=== PATIENT | male | born 1950 | race Caucasian/White ===

== ENCOUNTER → 2021-02-01 | Outpatient (CLI) | payer MEDICARE | LOC: US 09:44 | PROVIDERS: ATTEND Internal Medicine | DX: R94.5 Abnormal results of liver function studies (principal) | CPT/HCPCS: 76705 ==

== ENCOUNTER → 2021-06-05 | Outpatient (CLI) | payer MEDICARE ==
[~2021-06-05] MED LIST: IOPAMIDOL 370 MG/ML 200 ML INFUS..BTL INJ ONE; SODIUM CHLORIDE 0.9% 50ML 50 ML ONE
[2021-06-05 15:11] LABS: CREATININE, SERUM 0.79 mg/dL (0.72-1.25)
== END ==
LOC: CT 14:32
PROVIDERS: ATTEND Nurse Practitioner Adult Health
DX: R14.0 Abdominal distension (gaseous) (principal); R18.8 Other ascites; N20.0 Calculus of kidney; K57.30 Diverticulosis of large intestine without perforation or abscess without bleeding; K74.60 Unspecified cirrhosis of liver
CPT/HCPCS: 36415; 74177; 82565; 84520; Q9967

== ENCOUNTER → 2021-06-13 | Outpatient (CLI) | payer MEDICARE ==
[~2021-06-13] MED LIST changes: +ALBUMIN 25% 12.5GM 50ML 150 ML IV ONE; +ALBUMIN 25% 12.5GM 50ML 50 ML IV ONE; -IOPAMIDOL 370 MG/ML 200 ML INFUS..BTL INJ ONE; -SODIUM CHLORIDE 0.9% 50ML 50 ML ONE
[2021-06-13 12:28] LABS: HEMOGLOBIN 14.5 g/dL (14.0-18.0)
[2021-06-13 12:41] LABS: INR 1.15; PROTHROMBIN TIME 15.2 seconds (11.9-14.5)
[2021-06-13 12:42] LABS: PARTIAL THROMBOPLASTIN TIME 35.5 seconds (23.8-35.5)
== END ==
LOC: US 11:52
PROVIDERS: ATTEND Nurse Practitioner Adult Health
DX: R18.8 Other ascites (principal)
CPT/HCPCS: 36415; 49083; 85014; 85049; 85610; 85730

== ENCOUNTER → 2023-01-17 | Outpatient (CLI) | payer MEDICARE | LOC: MRI 08:18 | PROVIDERS: ATTEND Nurse Practitioner Adult Health | DX: M54.16 Radiculopathy, lumbar region (principal) | CPT/HCPCS: 72148 ==

== ENCOUNTER → 2023-02-25 | Outpatient (CLI) | payer MEDICARE | LOC: CT 16:18 | PROVIDERS: ATTEND Neurological Surgery | DX: M51.16 Intervertebral disc disorders with radiculopathy, lumbar region (principal); M51.36 Other intervertebral disc degeneration, lumbar region; M48.061 Spinal stenosis, lumbar region without neurogenic claudication | CPT/HCPCS: 72131 ==

== ENCOUNTER 2024-01-27 11:21 | Inpatient (IN) | payer MEDICARE ==
[~2024-01-27] VITALS: Ht 180.3 cm; Wt 99.8 kg
[2024-01-27] VITALS (7 sets, daily range): BP systolic 119; BP diastolic 76; PULSE 88–93; RESP 17–20; TEMP 97.7–97.8; O2SAT 97–100
[~2024-01-27 11:21] MED LIST changes: -ALBUMIN 25% 12.5GM 50ML 150 ML IV ONE; -ALBUMIN 25% 12.5GM 50ML 50 ML IV ONE; +ELIQUIS5 MG PO; +LACTULOSE10 GM/15 M PO; +LASIX40 MG PO; +METOPROLOL SUCC25 MG PO; +MYSOLINE50 MG PO; +OMEPRAZOLE40 MG PO; +RYBELSUS7 MG PO; +SPIRONOLACTONE25 MG PO
[2024-01-27 12:03] LABS: BASOPHILS # (AUTO) 0.1 (0.0-0.1); BASOPHILS % 0.4 % (0.0-1.0); EOSINOPHILS # (AUTO) 0.1 (0.0-0.4); EOSINOPHILS % 0.6 % (0.0-6.0); HEMOGLOBIN 13.6 g/dL (14.0-18.0); LYMPHOCYTES # (AUTO) 1.2 (1.0-3.2); LYMPHOCYTES % 9.1 % (18.0-39.1); MEAN CORPUSCULAR HEMOGLOBIN 30.2 pg (28-32); MEAN CORPUSCULAR HGB CONC 34.9 g/dL (31-35); MEAN CORPUSCULAR VOLUME 86.5 fL (81-99); MONOCYTES # (AUTO) 0.9 (0.2-0.8); MONOCYTES % 6.5 % (4.4-11.3); NEUTROPHILS # (AUTO) 10.9 (2.1-6.9); NEUTROPHILS % 82.2 % (38.7-80.0); PLATELET COUNT 209 x10e3/uL (140-360); RED BLOOD COUNT 4.51 x10e6/uL (4.3-5.7); RED CELL DISTRIBUTION WIDTH 17.5 % (11.7-14.4); WHITE BLOOD COUNT 13.24 x10e3/uL (4.8-10.8)
[2024-01-27 12:24] LABS: INR 2.03; PROTHROMBIN TIME 24.1 seconds (11.9-14.5)
[2024-01-27 12:25] LABS: PARTIAL THROMBOPLASTIN TIME 43.2 seconds (23.8-35.5)
[2024-01-27 12:32] LABS: ALBUMIN 2.3 g/dL (3.5-5.0); ALBUMIN/GLOBULIN RATIO 0.5 (0.8-2.0); ANION GAP 15.7 mmol/L (8-16); CALCIUM 12.6 mg/dL (8.4-10.2); CREATININE, SERUM 2.12 mg/dL (0.72-1.25); POTASSIUM 4.7 mmol/L (3.5-5.1); TOTAL PROTEIN 7.3 g/dL (6.5-8.1)
[2024-01-27] MEDS ORDERED: SODIUM CHLORIDE 0.9% 1000ML 1,000 ML IV SCH ×2 (12:45→14:45)
[2024-01-27] MEDS ORDERED: SODIUM CHLORIDE 0.9% 100 ML ONE (12:54)
[2024-01-27] MEDS ORDERED: IOPAMIDOL 370 MG/ML 100 ML INFUS..BTL INJ ONE (12:54)
[2024-01-27] MEDS ORDERED: LACTULOSE SYRUP 20 GM/30 ML UDC PO PRN (14:45)
[2024-01-27] MEDS ORDERED: Morphine 4mg INJECTION 4 MG/ML INJ ONE (19:51)
[2024-01-27] MEDS: Morphine 4mg INJECTION 4 MG/ML INJ IV ONE (19:52)
[2024-01-27] MEDS ORDERED: ELIQUIS5 M1 PO (21:10)
[2024-01-27] MEDS ORDERED: GLIMEPIRIDE2 MG PO (21:10)
[2024-01-28] VITALS (9 sets, daily range): BP systolic 108–154; BP diastolic 69–92; PULSE 93–109; RESP 18–22; TEMP 97.5–98.3; O2SAT 97–100
[2024-01-28 07:15] LABS: CLARITY,URINE CLOUDY (CLEAR); COLOR,URINE YELLOW (YELLOW); GLUCOSE, URINE NEGATIVE (NEGATIVE); KETONES,URINE NEGATIVE (NEGATIVE); LEUKOCYTE ESTERASE ,URINE SMALL (NEGATIVE); NITRITE,URINE NEGATIVE (NEGATIVE); PH,URINE 5.5 (5 - 7); PROTEIN,URINE DIPSTICK 2+ (NEGATIVE); URINE UROBILINOGEN 0.2 mg/dL (0.2 - 1)
[2024-01-28 07:16] LABS: BILIRUBIN,URINE SMALL (NEGATIVE)
[2024-01-28 07:16] LABS: BASOPHILS % 0.2 % (0.0-1.0); EOSINOPHILS # (AUTO) 0.1 (0.0-0.4); EOSINOPHILS % 0.4 % (0.0-6.0); HEMATOCRIT 35.6 % (38.2-49.6); HEMOGLOBIN 12.7 g/dL (14.0-18.0); LYMPHOCYTES # (AUTO) 1.2 (1.0-3.2); LYMPHOCYTES % 7.1 % (18.0-39.1); MEAN CORPUSCULAR HEMOGLOBIN 30.2 pg (28-32); MEAN CORPUSCULAR HGB CONC 35.7 g/dL (31-35); MEAN CORPUSCULAR VOLUME 84.8 fL (81-99); MONOCYTES # (AUTO) 0.8 (0.2-0.8); MONOCYTES % 4.8 % (4.4-11.3); NEUTROPHILS # (AUTO) 14.7 (2.1-6.9); NEUTROPHILS % 86.2 % (38.7-80.0); PLATELET COUNT 197 x10e3/uL (140-360); RED CELL DISTRIBUTION WIDTH 17.4 % (11.7-14.4); WHITE BLOOD COUNT 16.99 x10e3/uL (4.8-10.8)
[2024-01-28 07:42] LABS: CALCIUM 9.5 mg/dL (8.4-10.2); CREATININE, SERUM 2.02 mg/dL (0.72-1.25)
[2024-01-28 07:44] LABS: BACTERIA,URINE MANY /HPF; EPITHELIAL CELLS,URINE RARE /LPF; RBC,URINE >50 /HPF (0-5); TRANSITIONAL EPI CELLS,URINE RARE; WBC,URINE (MAN) 21-50 /HPF (0-5)
[2024-01-28 08:43] LABS: ANION GAP 15.1 mmol/L (8-16); POTASSIUM 5.1 mmol/L (3.5-5.1)
[2024-01-28] MEDS ORDERED: SPIRONOLACTONE 25 MG TAB PO SCH (09:00)
[2024-01-28] MEDS: SODIUM CHLORIDE 0.9% 1000ML 1,000 ML IV SCH (09:02)
[2024-01-28] MEDS: PANTOPRAZOLE SOD 40 MG TABEC PO SCH (09:03)
[2024-01-28] MEDS: METOPROLOL SUCCINATE 25 MG TAB XL PO SCH (09:03)
[2024-01-28] MEDS: ACETAMINOPHEN 325 MG TAB PO PRN (10:18)
[2024-01-28] MEDS: ONDANSETRON HCL INJ 2MG/ML 2ML 2 MG/ML VIAL IV PRN (13:20)
[2024-01-28] MEDS: Morphine 2mg Syringe 2 MG/ML SYR IV PRN (13:21)
[2024-01-28] MEDS: NALOXONE HCL INJ 0.4 MG/ML AMP IV ONE (15:03)
[2024-01-28] MEDS: DEXTROSE 50% SYRINGE 50 ML IV ONE ×2 (15:07→15:19)
[2024-01-28] MEDS: DEXTROSE 50% SYRINGE 50 ML IV STA (15:09)
[2024-01-28] MEDS: SODIUM CHLORIDE 0.9% 1000ML 1,000 ML IV ONE (15:19)
[2024-01-28 17:48] LABS: BASOPHILS % 0.2 % (0.0-1.0); EOSINOPHILS % 0.2 % (0.0-6.0); HEMATOCRIT 33.9 % (38.2-49.6); LYMPHOCYTES # (AUTO) 0.2 (1.0-3.2); LYMPHOCYTES % 1.2 % (18.0-39.1); MEAN CORPUSCULAR HEMOGLOBIN 29.5 pg (28-32); MEAN CORPUSCULAR HGB CONC 32.4 g/dL (31-35); MEAN CORPUSCULAR VOLUME 90.9 fL (81-99); MONOCYTES # (AUTO) 0.2 (0.2-0.8); MONOCYTES % 1.1 % (4.4-11.3); NEUTROPHILS # (AUTO) 17.1 (2.1-6.9); PLATELET COUNT 156 x10e3/uL (140-360); RED BLOOD COUNT 3.73 x10e6/uL (4.3-5.7); RED CELL DISTRIBUTION WIDTH 17.9 % (11.7-14.4); WHITE BLOOD COUNT 18.43 x10e3/uL (4.8-10.8)
[2024-01-28 20:36] LABS: HYPOCHROMASIA SLIGHT; LYMPHOCYTES % (MANUAL) 3 % (19-48); MONOCYTES % (MANUAL) 5 % (3.4-9.0); NEUTROPHILS % (MANUAL) 92 % (40-74)
[2024-01-28 20:37] LABS: ELLIPTOCYTE, RBC SLIGHT; PLATELET ESTIMATE ADEQUATE; PLATELET MORPHOLOGY COMMENT NORMAL; RBC MORPHOLOGY COMMENT NORMAL
[2024-01-28] MEDS: TAMSULOSIN HCL 0.4 MG CAP PO SCH (20:51)
[2024-01-29] VITALS (23 sets, daily range): BP systolic 82–140; BP diastolic 51–69; PULSE 82–118; RESP 11–22; TEMP 96.8–98; O2SAT 96–100
[2024-01-29] MEDS: LACTULOSE SYRUP 20 GM/30 ML UDC RC PRN (01:52)
[2024-01-29] MEDS: PHYTONADIONE 10 MG/ML AMP IV ONE (01:52)
[2024-01-29] MEDS: LACTULOSE SYRUP 20 GM/30 ML UDC ONE ×3 (01:54→10:18)
[2024-01-29] MEDS ORDERED: LACTULOSE SYRUP 20 GM/30 ML UDC RC ONE (02:00)
[2024-01-29 06:27] LABS: BASOPHILS # (AUTO) 0.1 (0.0-0.1); BASOPHILS % 0.2 % (0.0-1.0); EOSINOPHILS # (AUTO) 0.1 (0.0-0.4); EOSINOPHILS % 0.4 % (0.0-6.0); HEMATOCRIT 31.6 % (38.2-49.6); HEMOGLOBIN 11.2 g/dL (14.0-18.0); LYMPHOCYTES # (AUTO) 0.9 (1.0-3.2); LYMPHOCYTES % 2.6 % (18.0-39.1); MEAN CORPUSCULAR HEMOGLOBIN 30.5 pg (28-32); MEAN CORPUSCULAR HGB CONC 35.4 g/dL (31-35); MEAN CORPUSCULAR VOLUME 86.1 fL (81-99); MONOCYTES # (AUTO) 1.3 (0.2-0.8); MONOCYTES % 3.8 % (4.4-11.3); NEUTROPHILS # (AUTO) 29.3 (2.1-6.9); NEUTROPHILS % 86.4 % (38.7-80.0); PLATELET COUNT 153 x10e3/uL (140-360); RED BLOOD COUNT 3.67 x10e6/uL (4.3-5.7); RED CELL DISTRIBUTION WIDTH 18.3 % (11.7-14.4); WHITE BLOOD COUNT 33.84 x10e3/uL (4.8-10.8)
[2024-01-29 06:57] LABS: ALBUMIN 1.7 g/dL (3.5-5.0); ALBUMIN/GLOBULIN RATIO 0.4 (0.8-2.0); BILIRUBIN,TOTAL 1.2 mg/dL (0.2-1.2); CALCIUM 8.5 mg/dL (8.4-10.2); CREATININE, SERUM 2.72 mg/dL (0.72-1.25); TOTAL PROTEIN 5.8 g/dL (6.5-8.1)
[2024-01-29] MEDS: RIFAXIMIN 550 MG TABLET PO SCH (09:00)
[2024-01-29 09:07] LABS: LYMPHOCYTES % (MANUAL) 2 % (19-48); MONOCYTES % (MANUAL) 6 % (3.4-9.0); NEUTROPHILS % (MANUAL) 92 % (40-74)
[2024-01-29 09:08] LABS: PLATELET ESTIMATE ADEQUATE; PLATELET MORPHOLOGY COMMENT NORMAL; RBC MORPHOLOGY COMMENT NORMAL
[2024-01-29] MEDS ORDERED: LIDOCAINE HCL 1% LOCAL INJ 20 ML VIAL ONE (09:24)
[2024-01-29] MEDS ORDERED: ALBUMIN 25% 12.5GM 50ML 100 ML IV ONE (10:02)
[2024-01-29] MEDS: RIFAXIMIN 550 MG TABLET PO STA (10:18)
[2024-01-29 11:07] LABS: POTASSIUM 5.7 mmol/L (3.0-5.1)
[2024-01-29 11:08] LABS: ANION GAP 19.7 mmol/L (8-16)
[2024-01-29] MEDS ORDERED: ALBUMIN 5% 0.05 GM/ML BTL IV ONE ×2 (12:30)
[2024-01-29] MEDS: DEXTROSE 50% SYRINGE 50 ML IV ONE (12:39)
[2024-01-29] MEDS: INSULIN REGULAR, HUMAN 100 UNIT/1 ML IV ONE (12:41)
[2024-01-29] MEDS: ALBUMIN 5% 250ML 250 ML IV ONE ×2 (12:59→13:00)
[2024-01-29] MEDS: SOD POLYSTYRENE SULFONATE SUSP 15 GM/60 ML BTL PR ONE (13:00)
[2024-01-29 17:59] LABS: BODY FLUID APPEARANCE SL.CLOUDY; BODY FLUID COLOR YELLOW; BODY FLUID TYPE PERITONEAL
[2024-01-29 18:00] LABS: LYMPHOCYTES,BODY FLUID 11 %; MONO/MACROPHG,BODY FLUID 7 %; NEUTROPHILS,BODY FLUID 82 %; RBC,BODY FLUID 2000 cells/uL; TOTAL CELLS COUNTED (DIFF) 100; WBC,BODY FLUID 369 cells/uL
[2024-01-29 21:38] LABS: HEPATITIS B SURFACE AG (P) NON-REACTIVE; HEPATITIS C ANTIBODY NON-REACTIVE
[2024-01-29] MEDS: RIFAXIMIN 550 MG TABLET PO ONE (22:49)
[2024-01-30] VITALS (27 sets, daily range): BP systolic 112–148; BP diastolic 54–77; PULSE 86–119; RESP 10–22; TEMP 97.5–98.8; O2SAT 98–100
[2024-01-30 01:30] LABS: SODIUM,URINE < 20 mmol/L
[2024-01-30 06:05] LABS: BASOPHILS % 0.1 % (0.0-1.0); EOSINOPHILS # (AUTO) 0.1 (0.0-0.4); EOSINOPHILS % 0.3 % (0.0-6.0); HEMATOCRIT 29.8 % (38.2-49.6); LYMPHOCYTES # (AUTO) 0.8 (1.0-3.2); LYMPHOCYTES % 3.6 % (18.0-39.1); MEAN CORPUSCULAR HEMOGLOBIN 29.9 pg (28-32); MEAN CORPUSCULAR HGB CONC 33.6 g/dL (31-35); MEAN CORPUSCULAR VOLUME 89.2 fL (81-99); MONOCYTES # (AUTO) 1.3 (0.2-0.8); MONOCYTES % 5.6 % (4.4-11.3); NEUTROPHILS # (AUTO) 19.9 (2.1-6.9); NEUTROPHILS % 88.3 % (38.7-80.0); PLATELET COUNT 127 x10e3/uL (140-360); RED BLOOD COUNT 3.34 x10e6/uL (4.3-5.7); RED CELL DISTRIBUTION WIDTH 18.4 % (11.7-14.4); WHITE BLOOD COUNT 22.53 x10e3/uL (4.8-10.8)
[2024-01-30 06:45] LABS: ALBUMIN 2.2 g/dL (3.5-5.0); ALBUMIN/GLOBULIN RATIO 0.6 (0.8-2.0); CREATININE, SERUM 1.96 mg/dL (0.72-1.25); TOTAL PROTEIN 5.7 g/dL (6.5-8.1)
[2024-01-30 08:00] LABS: ANION GAP 8.3 mmol/L (8-16); CALCIUM 8.6 mg/dL (8.0-10.3); POTASSIUM 4.3 mmol/L (3.0-5.1)
[2024-01-30 08:32] LABS: LYMPHOCYTES % (MANUAL) 5 % (19-48); MONOCYTES % (MANUAL) 4 % (3.4-9.0); NEUTROPHILS % (MANUAL) 91 % (40-74); PLATELET ESTIMATE SLIGHTLY DECREASED; PLATELET MORPHOLOGY COMMENT NORMAL
[2024-01-30 08:33] LABS: RBC MORPHOLOGY COMMENT NORMAL
[2024-01-30] MEDS: ALBUMIN 5% 0.05 GM/ML BTL IV ONE (10:46)
[2024-01-30] MEDS: MUPIROCIN 2% OINT 22 GM TUBE TOP SCH (12:55)
[2024-01-30] MEDS: MEROPENEM 1 GM in SODIUM CHLORIDE 0.9% 100 ML IV SCH (17:34)
[2024-01-31] VITALS (24 sets, daily range): BP systolic 104–167; BP diastolic 64–80; PULSE 101–122; RESP 9–18; TEMP 98.1–98.5; O2SAT 95–100
[2024-01-31 06:22] LABS: BASOPHILS % 0.1 % (0.0-1.0); EOSINOPHILS # (AUTO) 0.1 (0.0-0.4); EOSINOPHILS % 0.3 % (0.0-6.0); HEMATOCRIT 29.3 % (38.2-49.6); LYMPHOCYTES # (AUTO) 0.9 (1.0-3.2); LYMPHOCYTES % 4.6 % (18.0-39.1); MEAN CORPUSCULAR HGB CONC 34.1 g/dL (31-35); MONOCYTES # (AUTO) 1.1 (0.2-0.8); MONOCYTES % 5.7 % (4.4-11.3); NEUTROPHILS # (AUTO) 16.7 (2.1-6.9); NEUTROPHILS % 88.4 % (38.7-80.0); PLATELET COUNT 120 x10e3/uL (140-360); RED BLOOD COUNT 3.33 x10e6/uL (4.3-5.7); RED CELL DISTRIBUTION WIDTH 18.6 % (11.7-14.4); WHITE BLOOD COUNT 18.83 x10e3/uL (4.8-10.8)
[2024-01-31 06:44] LABS: ALBUMIN 2.4 g/dL (3.5-5.0); ALBUMIN/GLOBULIN RATIO 0.7 (0.8-2.0); BILIRUBIN,TOTAL 1.1 mg/dL (0.2-1.2); CREATININE, SERUM 1.52 mg/dL (0.72-1.25); TOTAL PROTEIN 5.8 g/dL (6.5-8.1)
[2024-01-31] MEDS: LACTULOSE SYRUP 20 GM/30 ML UDC PO SCH (09:03)
[2024-01-31 16:04] LABS: ANION GAP 18.1 mmol/L (8-16); CALCIUM 9.1 mg/dL (8.4-10.2)
[2024-01-31] MEDS ORDERED: DEXTROSE 50% SYRINGE 50 ML IV PRN (17:30)
[2024-01-31] MEDS: METOPROLOL TARTRATE 25 MG TAB PO ONE (17:37)
[2024-01-31] MEDS: INSULIN REGULAR, HUMAN 100 UNIT/1 ML SQ SCH (18:04)
[2024-02-01] VITALS (21 sets, daily range): BP systolic 104–145; BP diastolic 61–90; PULSE 92–106; RESP 10–19; TEMP 98–98.1; O2SAT 97–100
[2024-02-01 06:46] LABS: BASOPHILS % 0.2 % (0.0-1.0); EOSINOPHILS # (AUTO) 0.1 (0.0-0.4); EOSINOPHILS % 1.1 % (0.0-6.0); HEMATOCRIT 30.6 % (38.2-49.6); HEMOGLOBIN 10.4 g/dL (14.0-18.0); LYMPHOCYTES # (AUTO) 0.7 (1.0-3.2); LYMPHOCYTES % 6.1 % (18.0-39.1); MEAN CORPUSCULAR HEMOGLOBIN 30.1 pg (28-32); MEAN CORPUSCULAR VOLUME 88.4 fL (81-99); MONOCYTES % 8.5 % (4.4-11.3); NEUTROPHILS # (AUTO) 10.1 (2.1-6.9); NEUTROPHILS % 83.1 % (38.7-80.0); PLATELET COUNT 102 x10e3/uL (140-360); RED BLOOD COUNT 3.46 x10e6/uL (4.3-5.7); RED CELL DISTRIBUTION WIDTH 18.7 % (11.7-14.4); WHITE BLOOD COUNT 12.18 x10e3/uL (4.8-10.8)
[2024-02-01 07:16] LABS: ALBUMIN 2.2 g/dL (3.5-5.0); ALBUMIN/GLOBULIN RATIO 0.6 (0.8-2.0); ANION GAP 12.7 mmol/L (8-16); BILIRUBIN,TOTAL 0.9 mg/dL (0.2-1.2); CREATININE, SERUM 1.26 mg/dL (0.72-1.25); MAGNESIUM 2.1 MG/DL (1.3-2.1); PHOSPHORUS 2.3 MG/DL (2.3-4.7); POTASSIUM 3.7 mmol/L (3.5-5.1); TOTAL PROTEIN 5.8 g/dL (6.5-8.1)
[2024-02-01] MEDS: METOPROLOL TARTRATE 25 MG TAB PO SCH (08:53)
[2024-02-02] VITALS (18 sets, daily range): BP systolic 104–128; BP diastolic 66–85; PULSE 102–120; RESP 12–19; TEMP 97.6–97.9; O2SAT 92–100
[2024-02-02 07:09] LABS: BASOPHILS % 0.2 % (0.0-1.0); EOSINOPHILS # (AUTO) 0.1 (0.0-0.4); EOSINOPHILS % 0.9 % (0.0-6.0); HEMATOCRIT 34.7 % (38.2-49.6); HEMOGLOBIN 11.8 g/dL (14.0-18.0); LYMPHOCYTES # (AUTO) 0.8 (1.0-3.2); LYMPHOCYTES % 6.7 % (18.0-39.1); MEAN CORPUSCULAR HEMOGLOBIN 30.1 pg (28-32); MEAN CORPUSCULAR VOLUME 88.5 fL (81-99); MONOCYTES # (AUTO) 1.2 (0.2-0.8); MONOCYTES % 10.1 % (4.4-11.3); NEUTROPHILS # (AUTO) 9.7 (2.1-6.9); NEUTROPHILS % 80.3 % (38.7-80.0); PLATELET COUNT 116 x10e3/uL (140-360); RED BLOOD COUNT 3.92 x10e6/uL (4.3-5.7); RED CELL DISTRIBUTION WIDTH 18.6 % (11.7-14.4); WHITE BLOOD COUNT 12.07 x10e3/uL (4.8-10.8)
[2024-02-02 07:21] LABS: ALBUMIN 2.3 g/dL (3.5-5.0); ALBUMIN/GLOBULIN RATIO 0.6 (0.8-2.0); BILIRUBIN,TOTAL 1.3 mg/dL (0.2-1.2); CALCIUM 8.4 mg/dL (8.4-10.2); CREATININE, SERUM 1.34 mg/dL (0.72-1.25); TOTAL PROTEIN 6.3 g/dL (6.5-8.1)
[2024-02-02] MEDS: LACTULOSE SYRUP 20 GM/30 ML UDC PO SCH (09:08)
[2024-02-02 10:58] LABS: AMYLASE,BODY FLUID 23
[2024-02-02 10:59] LABS: GLUCOSE,BODY FLUID 122 mg/dL
[2024-02-03] VITALS (15 sets, daily range): BP systolic 112–144; BP diastolic 57–101; PULSE 99–113; RESP 10–22; TEMP 98.1–98.6; O2SAT 90–99
[2024-02-03 06:44] LABS: BASOPHILS # (AUTO) 0.1 (0.0-0.1); BASOPHILS % 0.5 % (0.0-1.0); EOSINOPHILS # (AUTO) 0.1 (0.0-0.4); EOSINOPHILS % 1.1 % (0.0-6.0); HEMATOCRIT 35.2 % (38.2-49.6); HEMOGLOBIN 11.9 g/dL (14.0-18.0); LYMPHOCYTES # (AUTO) 1.1 (1.0-3.2); LYMPHOCYTES % 9.4 % (18.0-39.1); MEAN CORPUSCULAR HEMOGLOBIN 30.2 pg (28-32); MEAN CORPUSCULAR HGB CONC 33.8 g/dL (31-35); MEAN CORPUSCULAR VOLUME 89.3 fL (81-99); MONOCYTES # (AUTO) 1.2 (0.2-0.8); MONOCYTES % 10.2 % (4.4-11.3); NEUTROPHILS # (AUTO) 8.6 (2.1-6.9); NEUTROPHILS % 72.8 % (38.7-80.0); PLATELET COUNT 118 x10e3/uL (140-360); RED BLOOD COUNT 3.94 x10e6/uL (4.3-5.7); RED CELL DISTRIBUTION WIDTH 18.7 % (11.7-14.4); WHITE BLOOD COUNT 11.76 x10e3/uL (4.8-10.8)
[2024-02-03 07:27] LABS: ALBUMIN 2.1 g/dL (3.5-5.0); ALBUMIN/GLOBULIN RATIO 0.6 (0.8-2.0); BILIRUBIN,TOTAL 1.1 mg/dL (0.2-1.2); CALCIUM 7.7 mg/dL (8.4-10.2); CREATININE, SERUM 1.77 mg/dL (0.72-1.25); TOTAL PROTEIN 5.9 g/dL (6.5-8.1)
[2024-02-03] MEDS: SODIUM BICARBONATE 8.4% SYRING 150 ML in DEXTROSE 5% 1,000 ML IV SCH (13:13)
[2024-02-03] MEDS: BUMETANIDE INJ 0.25MG/ML 4ML VIAL IV SCH (13:14)
[2024-02-03] MEDS: HYDROCORTISONE 1% CREAM 30 GM TUBE TOP PRN (16:48)
[2024-02-04] VITALS (21 sets, daily range): BP systolic 93–136; BP diastolic 50–75; PULSE 94–117; RESP 11–18; TEMP 97.9–98.9; O2SAT 92–99
[2024-02-04 06:10] LABS: BASOPHILS % 0.3 % (0.0-1.0); EOSINOPHILS # (AUTO) 0.2 (0.0-0.4); EOSINOPHILS % 1.3 % (0.0-6.0); HEMATOCRIT 34.6 % (38.2-49.6); HEMOGLOBIN 11.2 g/dL (14.0-18.0); LYMPHOCYTES # (AUTO) 1.6 (1.0-3.2); LYMPHOCYTES % 12.3 % (18.0-39.1); MEAN CORPUSCULAR HEMOGLOBIN 29.2 pg (28-32); MEAN CORPUSCULAR HGB CONC 32.4 g/dL (31-35); MEAN CORPUSCULAR VOLUME 90.3 fL (81-99); MONOCYTES # (AUTO) 1.3 (0.2-0.8); MONOCYTES % 10.1 % (4.4-11.3); NEUTROPHILS % 67.9 % (38.7-80.0); PLATELET COUNT 113 x10e3/uL (140-360); RED BLOOD COUNT 3.83 x10e6/uL (4.3-5.7); RED CELL DISTRIBUTION WIDTH 18.5 % (11.7-14.4); WHITE BLOOD COUNT 13.21 x10e3/uL (4.8-10.8)
[2024-02-04 06:36] LABS: ALBUMIN/GLOBULIN RATIO 0.6 (0.8-2.0); ANION GAP 15.2 mmol/L (8-16); BILIRUBIN,TOTAL 1.4 mg/dL (0.2-1.2); CALCIUM 8.1 mg/dL (8.4-10.2); CREATININE, SERUM 2.18 mg/dL (0.72-1.25); POTASSIUM 4.2 mmol/L (3.5-5.1); TOTAL PROTEIN 5.5 g/dL (6.5-8.1)
[2024-02-04 07:52] LABS: BASOPHILS % (MANUAL) 1 % (0-1.5); EOSINOPHILS % (MANUAL) 2 % (0-7); LYMPHOCYTES % (MANUAL) 8 % (19-48); MONOCYTES % (MANUAL) 10 % (3.4-9.0); NEUTROPHILS % (MANUAL) 79 % (40-74); PLATELET ESTIMATE SLIGHTLY DECREASED; PLATELET MORPHOLOGY COMMENT NORMAL; RBC MORPHOLOGY COMMENT NORMAL
[2024-02-04] MEDS ORDERED: ALBUMIN 25% 12.5GM 50ML 150 ML IV ONE (10:50)
[2024-02-04] MEDS: ALBUTEROL SULF 0.083% NEB SOLN 3 ML NEB NEB SCH (14:06)
[2024-02-04] MEDS: BUMETANIDE 10 MG in SODIUM CHLORIDE 0.9% 60 ML IV SCH (16:41)
[2024-02-05] VITALS (23 sets, daily range): BP systolic 94–160; BP diastolic 54–124; PULSE 89–105; RESP 12–21; TEMP 97.7–99; O2SAT 93–100
[2024-02-05 07:50] LABS: BASOPHILS % 0.2 % (0.0-1.0); EOSINOPHILS # (AUTO) 0.1 (0.0-0.4); EOSINOPHILS % 0.8 % (0.0-6.0); HEMATOCRIT 34.8 % (38.2-49.6); HEMOGLOBIN 11.4 g/dL (14.0-18.0); LYMPHOCYTES # (AUTO) 1.5 (1.0-3.2); MEAN CORPUSCULAR HEMOGLOBIN 29.5 pg (28-32); MEAN CORPUSCULAR HGB CONC 32.8 g/dL (31-35); MEAN CORPUSCULAR VOLUME 90.2 fL (81-99); MONOCYTES # (AUTO) 1.2 (0.2-0.8); MONOCYTES % 7.9 % (4.4-11.3); NEUTROPHILS # (AUTO) 11.3 (2.1-6.9); NEUTROPHILS % 76.4 % (38.7-80.0); PLATELET COUNT 125 x10e3/uL (140-360); RED BLOOD COUNT 3.86 x10e6/uL (4.3-5.7); WHITE BLOOD COUNT 14.82 x10e3/uL (4.8-10.8)
[2024-02-05 08:02] LABS: INR 1.13; PROTHROMBIN TIME 15.3 seconds (11.9-14.5)
[2024-02-05 08:19] LABS: ALBUMIN 1.9 g/dL (3.5-5.0); ALBUMIN/GLOBULIN RATIO 0.5 (0.8-2.0); ANION GAP 16.1 mmol/L (8-16); BILIRUBIN,TOTAL 1.5 mg/dL (0.2-1.2); CALCIUM 8.1 mg/dL (8.4-10.2); CREATININE, SERUM 1.98 mg/dL (0.72-1.25); POTASSIUM 4.1 mmol/L (3.5-5.1); TOTAL PROTEIN 5.6 g/dL (6.5-8.1)
[2024-02-05 10:08] LABS: BODY FLUID COLOR YELLOW; BODY FLUID TYPE PERITONEAL
[2024-02-05 10:09] LABS: BODY FLUID APPEARANCE CLOUDY; RBC,BODY FLUID 1000 cells/uL; WBC,BODY FLUID 77 cells/uL
[2024-02-05] MEDS: SODIUM BICARBONATE 8.4% VIAL 150 ML in STERILE WATER IV SOLN 1,000 ML IV SCH (11:02)
[2024-02-05 11:08] LABS: LYMPHOCYTES,BODY FLUID 73 %; MONO/MACROPHG,BODY FLUID 8 %; NEUTROPHILS,BODY FLUID 17 %; OTHER CELLS,BODY FLUID 2 %; TOTAL CELLS COUNTED (DIFF) 100
[2024-02-05] MEDS: SODIUM BICARBONATE 650 MG TAB PO SCH (14:12)
[2024-02-06] VITALS (10 sets, daily range): BP systolic 101–118; BP diastolic 54–68; PULSE 93–111; RESP 16–20; TEMP 97.8–98.7; O2SAT 92–98
[2024-02-06 06:26] LABS: BASOPHILS # (AUTO) 0.1 (0.0-0.1); BASOPHILS % 0.4 % (0.0-1.0); EOSINOPHILS # (AUTO) 0.1 (0.0-0.4); EOSINOPHILS % 0.5 % (0.0-6.0); HEMATOCRIT 32.6 % (38.2-49.6); HEMOGLOBIN 11.6 g/dL (14.0-18.0); LYMPHOCYTES # (AUTO) 1.4 (1.0-3.2); MEAN CORPUSCULAR HEMOGLOBIN 30.1 pg (28-32); MEAN CORPUSCULAR HGB CONC 35.6 g/dL (31-35); MEAN CORPUSCULAR VOLUME 84.5 fL (81-99); NEUTROPHILS # (AUTO) 13.8 (2.1-6.9); NEUTROPHILS % 80.2 % (38.7-80.0); PLATELET COUNT 125 x10e3/uL (140-360); RED BLOOD COUNT 3.86 x10e6/uL (4.3-5.7); RED CELL DISTRIBUTION WIDTH 17.7 % (11.7-14.4); WHITE BLOOD COUNT 17.26 x10e3/uL (4.8-10.8)
[2024-02-06 07:39] LABS: ALBUMIN 1.8 g/dL (3.5-5.0); ALBUMIN/GLOBULIN RATIO 0.5 (0.8-2.0); ANION GAP 16.8 mmol/L (8-16); BILIRUBIN,TOTAL 1.6 mg/dL (0.2-1.2); CALCIUM 7.7 mg/dL (8.4-10.2); CREATININE, SERUM 1.95 mg/dL (0.72-1.25); MAGNESIUM 1.7 MG/DL (1.3-2.1); PHOSPHORUS 4.6 MG/DL (2.3-4.7); POTASSIUM 3.8 mmol/L (3.5-5.1); TOTAL PROTEIN 5.6 g/dL (6.5-8.1)
[2024-02-06] MEDS: SODIUM BICARBONATE 650 MG TAB PO SCH (10:15)
[2024-02-06] MEDS: SODIUM CHLORIDE 1 GM TAB PO SCH (14:19)
[2024-02-06] MEDS: BUMETANIDE 1 MG TAB PO SCH (18:00)
[2024-02-07] VITALS (9 sets, daily range): BP systolic 92–101; BP diastolic 54–57; PULSE 95–106; RESP 17–20; TEMP 97.9–98.4; O2SAT 93–99
[2024-02-07 06:23] LABS: BASOPHILS # (AUTO) 0.1 (0.0-0.1); BASOPHILS % 0.5 % (0.0-1.0); EOSINOPHILS # (AUTO) 0.1 (0.0-0.4); EOSINOPHILS % 0.6 % (0.0-6.0); HEMOGLOBIN 12.2 g/dL (14.0-18.0); LYMPHOCYTES # (AUTO) 1.5 (1.0-3.2); LYMPHOCYTES % 7.8 % (18.0-39.1); MEAN CORPUSCULAR HEMOGLOBIN 29.8 pg (28-32); MEAN CORPUSCULAR HGB CONC 34.9 g/dL (31-35); MEAN CORPUSCULAR VOLUME 85.6 fL (81-99); MONOCYTES # (AUTO) 1.4 (0.2-0.8); MONOCYTES % 6.9 % (4.4-11.3); NEUTROPHILS # (AUTO) 15.7 (2.1-6.9); NEUTROPHILS % 80.7 % (38.7-80.0); PLATELET COUNT 149 x10e3/uL (140-360); RED BLOOD COUNT 4.09 x10e6/uL (4.3-5.7); RED CELL DISTRIBUTION WIDTH 17.8 % (11.7-14.4); WHITE BLOOD COUNT 19.47 x10e3/uL (4.8-10.8)
[2024-02-07 06:41] LABS: BILIRUBIN,URINE MODERATE (NEGATIVE); CLARITY,URINE CLOUDY (CLEAR); COLOR,URINE YELLOW (YELLOW); GLUCOSE, URINE NEGATIVE (NEGATIVE); KETONES,URINE TRACE (NEGATIVE); LEUKOCYTE ESTERASE ,URINE LARGE (NEGATIVE); NITRITE,URINE NEGATIVE (NEGATIVE); PH,URINE 5 (5 - 7); PROTEIN,URINE DIPSTICK 1+ (NEGATIVE); URINE UROBILINOGEN 0.2 mg/dL (0.2 - 1)
[2024-02-07 06:45] LABS: ALBUMIN 1.9 g/dL (3.5-5.0); ALBUMIN/GLOBULIN RATIO 0.5 (0.8-2.0); ANION GAP 19.2 mmol/L (8-16); BILIRUBIN,TOTAL 1.6 mg/dL (0.2-1.2); CALCIUM 8.3 mg/dL (8.4-10.2); CREATININE, SERUM 2.44 mg/dL (0.72-1.25); POTASSIUM 4.2 mmol/L (3.5-5.1)
[2024-02-07 07:09] LABS: BACTERIA,URINE MANY /HPF; EPITHELIAL CELLS,URINE FEW /LPF; WBC,URINE (MAN) >50 /HPF (0-5)
[2024-02-07 07:10] LABS: YEAST,URINE MANY
[2024-02-07] MEDS: ALBUMIN 5% 0.05 GM/ML BTL IV ONE (11:10)
[2024-02-07] MEDS ORDERED: ONDANSETRON HCL 4 MG ORAL DISINTEGRATING TAB PO PRN (13:15)
[2024-02-07] MEDS: PRIMIDONE 50 MG TAB PO SCH (21:00)
[2024-02-08] VITALS (7 sets, daily range): BP systolic 100–122; BP diastolic 50–94; PULSE 90–115; RESP 16–22; TEMP 97.5–98.1; O2SAT 94–100
[2024-02-08] MEDS: TRAMADOL HCL 50 MG TAB PO PRN (04:19)
[2024-02-08 06:10] LABS: BASOPHILS # (AUTO) 0.1 (0.0-0.1); BASOPHILS % 0.3 % (0.0-1.0); EOSINOPHILS # (AUTO) 0.1 (0.0-0.4); EOSINOPHILS % 0.7 % (0.0-6.0); HEMATOCRIT 33.1 % (38.2-49.6); HEMOGLOBIN 11.4 g/dL (14.0-18.0); LYMPHOCYTES % 5.9 % (18.0-39.1); MEAN CORPUSCULAR HEMOGLOBIN 29.8 pg (28-32); MEAN CORPUSCULAR HGB CONC 34.4 g/dL (31-35); MEAN CORPUSCULAR VOLUME 86.4 fL (81-99); MONOCYTES % 5.9 % (4.4-11.3); NEUTROPHILS # (AUTO) 14.8 (2.1-6.9); NEUTROPHILS % 84.5 % (38.7-80.0); PLATELET COUNT 140 x10e3/uL (140-360); RED BLOOD COUNT 3.83 x10e6/uL (4.3-5.7); RED CELL DISTRIBUTION WIDTH 17.7 % (11.7-14.4); WHITE BLOOD COUNT 17.49 x10e3/uL (4.8-10.8)
[2024-02-09] VITALS (9 sets, daily range): BP systolic 95–107; BP diastolic 53–63; PULSE 93–99; RESP 17–19; TEMP 97.3–98.2; O2SAT 94–100
[2024-02-09 05:54] LABS: BASOPHILS % 0.3 % (0.0-1.0); EOSINOPHILS # (AUTO) 0.2 (0.0-0.4); EOSINOPHILS % 1.5 % (0.0-6.0); HEMATOCRIT 31.4 % (38.2-49.6); LYMPHOCYTES % 6.5 % (18.0-39.1); MEAN CORPUSCULAR HEMOGLOBIN 30.2 pg (28-32); MEAN CORPUSCULAR VOLUME 86.3 fL (81-99); MONOCYTES # (AUTO) 0.9 (0.2-0.8); MONOCYTES % 6.2 % (4.4-11.3); NEUTROPHILS % 82.1 % (38.7-80.0); PLATELET COUNT 126 x10e3/uL (140-360); RED BLOOD COUNT 3.64 x10e6/uL (4.3-5.7); RED CELL DISTRIBUTION WIDTH 17.6 % (11.7-14.4); WHITE BLOOD COUNT 14.62 x10e3/uL (4.8-10.8)
[2024-02-09 06:15] LABS: ANION GAP 18.1 mmol/L (8-16); CALCIUM 8.3 mg/dL (8.4-10.2); CREATININE, SERUM 2.96 mg/dL (0.72-1.25); POTASSIUM 4.1 mmol/L (3.5-5.1)
[2024-02-09] MEDS: ALBUMIN 5% 0.05 GM/ML BTL IV ONE (12:50)
[2024-02-09] MEDS ORDERED: SODIUM CHLORIDE 0.9% 1000ML 1,000 ML IV SCH (14:00)
[2024-02-09] MEDS: LACTULOSE SYRUP 20 GM/30 ML UDC PO SCH (17:00)
[2024-02-09] MEDS: SODIUM CHLORIDE 1 GM TAB PO SCH (17:41)
[2024-02-09 22:39] LABS: CREATININE, SERUM 3.07 mg/dL (0.72-1.25)
[2024-02-10] VITALS (9 sets, daily range): BP systolic 98–115; BP diastolic 37–65; PULSE 90–106; RESP 16–18; TEMP 97.4–98.2; O2SAT 92–100
[2024-02-10 07:39] LABS: BASOPHILS % 0.3 % (0.0-1.0); EOSINOPHILS # (AUTO) 0.3 (0.0-0.4); EOSINOPHILS % 2.3 % (0.0-6.0); HEMATOCRIT 27.9 % (38.2-49.6); HEMOGLOBIN 9.6 g/dL (14.0-18.0); LYMPHOCYTES # (AUTO) 0.9 (1.0-3.2); LYMPHOCYTES % 7.4 % (18.0-39.1); MEAN CORPUSCULAR HEMOGLOBIN 29.8 pg (28-32); MEAN CORPUSCULAR HGB CONC 34.4 g/dL (31-35); MEAN CORPUSCULAR VOLUME 86.6 fL (81-99); MONOCYTES # (AUTO) 0.6 (0.2-0.8); MONOCYTES % 5.4 % (4.4-11.3); NEUTROPHILS # (AUTO) 9.8 (2.1-6.9); NEUTROPHILS % 82.3 % (38.7-80.0); PLATELET COUNT 104 x10e3/uL (140-360); RED BLOOD COUNT 3.22 x10e6/uL (4.3-5.7); RED CELL DISTRIBUTION WIDTH 17.8 % (11.7-14.4); WHITE BLOOD COUNT 11.96 x10e3/uL (4.8-10.8)
[2024-02-10 08:06] LABS: ALBUMIN 2.2 g/dL (3.5-5.0); ALBUMIN/GLOBULIN RATIO 0.7 (0.8-2.0); ANION GAP 17.7 mmol/L (8-16); BILIRUBIN,TOTAL 1.7 mg/dL (0.2-1.2); CALCIUM 7.9 mg/dL (8.4-10.2); CREATININE, SERUM 2.83 mg/dL (0.72-1.25); MAGNESIUM 1.9 MG/DL (1.3-2.1); POTASSIUM 3.7 mmol/L (3.5-5.1); TOTAL PROTEIN 5.2 g/dL (6.5-8.1)
[2024-02-10] MEDS ORDERED: ALBUMIN 25% 12.5GM 50ML 150 ML IV ONE (15:54)
[2024-02-10 18:25] LABS: BODY FLUID APPEARANCE CLOUDY; BODY FLUID COLOR YELLOW; BODY FLUID TYPE PERITONEAL; WBC,BODY FLUID 98 cells/uL
[2024-02-10 18:26] LABS: RBC,BODY FLUID 0 cells/uL
[2024-02-10 20:57] LABS: LYMPHOCYTES,BODY FLUID 34 %; MONO/MACROPHG,BODY FLUID 22 %; NEUTROPHILS,BODY FLUID 44 %; TOTAL CELLS COUNTED (DIFF) 100
[2024-02-11] VITALS (9 sets, daily range): BP systolic 98–108; BP diastolic 45–56; PULSE 92–112; RESP 18–22; TEMP 97.5–98.4; O2SAT 95–100
[2024-02-11 06:37] LABS: BASOPHILS % 0.3 % (0.0-1.0); EOSINOPHILS # (AUTO) 0.2 (0.0-0.4); HEMATOCRIT 26.7 % (38.2-49.6); HEMOGLOBIN 9.4 g/dL (14.0-18.0); LYMPHOCYTES # (AUTO) 0.8 (1.0-3.2); LYMPHOCYTES % 7.9 % (18.0-39.1); MEAN CORPUSCULAR HGB CONC 35.2 g/dL (31-35); MEAN CORPUSCULAR VOLUME 85.3 fL (81-99); MONOCYTES # (AUTO) 0.6 (0.2-0.8); MONOCYTES % 6.1 % (4.4-11.3); NEUTROPHILS # (AUTO) 8.6 (2.1-6.9); NEUTROPHILS % 82.1 % (38.7-80.0); PLATELET COUNT 85 x10e3/uL (140-360); RED BLOOD COUNT 3.13 x10e6/uL (4.3-5.7); RED CELL DISTRIBUTION WIDTH 17.9 % (11.7-14.4); WHITE BLOOD COUNT 10.48 x10e3/uL (4.8-10.8)
[2024-02-11 07:18] LABS: ALBUMIN 2.7 g/dL (3.5-5.0); CREATININE, SERUM 2.64 mg/dL (0.72-1.25); TOTAL PROTEIN 5.4 g/dL (6.5-8.1)
[2024-02-12] VITALS (8 sets, daily range): BP systolic 97–112; BP diastolic 49–61; PULSE 99–115; RESP 16–22; TEMP 97.7–98; O2SAT 93–100
[2024-02-12 06:48] LABS: BASOPHILS % 0.2 % (0.0-1.0); EOSINOPHILS # (AUTO) 0.2 (0.0-0.4); EOSINOPHILS % 1.7 % (0.0-6.0); HEMATOCRIT 31.5 % (38.2-49.6); HEMOGLOBIN 10.3 g/dL (14.0-18.0); LYMPHOCYTES # (AUTO) 0.8 (1.0-3.2); LYMPHOCYTES % 6.5 % (18.0-39.1); MEAN CORPUSCULAR HEMOGLOBIN 28.9 pg (28-32); MEAN CORPUSCULAR HGB CONC 32.7 g/dL (31-35); MEAN CORPUSCULAR VOLUME 88.5 fL (81-99); MONOCYTES # (AUTO) 0.7 (0.2-0.8); MONOCYTES % 5.3 % (4.4-11.3); NEUTROPHILS # (AUTO) 10.7 (2.1-6.9); NEUTROPHILS % 84.2 % (38.7-80.0); PLATELET COUNT 108 x10e3/uL (140-360); RED BLOOD COUNT 3.56 x10e6/uL (4.3-5.7); RED CELL DISTRIBUTION WIDTH 17.7 % (11.7-14.4); WHITE BLOOD COUNT 12.64 x10e3/uL (4.8-10.8)
[2024-02-12 07:22] LABS: ALBUMIN 2.6 g/dL (3.5-5.0); ALBUMIN/GLOBULIN RATIO 0.8 (0.8-2.0); ANION GAP 19.1 mmol/L (8-16); BILIRUBIN,TOTAL 1.9 mg/dL (0.2-1.2); CALCIUM 8.2 mg/dL (8.4-10.2); CREATININE, SERUM 2.35 mg/dL (0.72-1.25); POTASSIUM 4.1 mmol/L (3.5-5.1); TOTAL PROTEIN 5.7 g/dL (6.5-8.1)
[2024-02-13] VITALS (9 sets, daily range): BP systolic 92–106; BP diastolic 51–69; PULSE 95–123; RESP 16–20; TEMP 97.8–98.1; O2SAT 94–100
[2024-02-13 06:54] LABS: BASOPHILS % 0.2 % (0.0-1.0); EOSINOPHILS # (AUTO) 0.2 (0.0-0.4); EOSINOPHILS % 1.2 % (0.0-6.0); HEMATOCRIT 33.2 % (38.2-49.6); HEMOGLOBIN 10.7 g/dL (14.0-18.0); LYMPHOCYTES # (AUTO) 0.8 (1.0-3.2); LYMPHOCYTES % 5.9 % (18.0-39.1); MEAN CORPUSCULAR HEMOGLOBIN 29.1 pg (28-32); MEAN CORPUSCULAR HGB CONC 32.2 g/dL (31-35); MEAN CORPUSCULAR VOLUME 90.2 fL (81-99); MONOCYTES # (AUTO) 0.6 (0.2-0.8); MONOCYTES % 4.4 % (4.4-11.3); NEUTROPHILS % 86.2 % (38.7-80.0); PLATELET COUNT 111 x10e3/uL (140-360); RED BLOOD COUNT 3.68 x10e6/uL (4.3-5.7); RED CELL DISTRIBUTION WIDTH 17.8 % (11.7-14.4); WHITE BLOOD COUNT 13.96 x10e3/uL (4.8-10.8)
[2024-02-13 07:19] LABS: ANION GAP 21.6 mmol/L (8-16); CALCIUM 8.3 mg/dL (8.4-10.2); CREATININE, SERUM 2.61 mg/dL (0.72-1.25); POTASSIUM 4.6 mmol/L (3.5-5.1)
[2024-02-14] VITALS: BP 104/58; PULSE 102; RESP 18; TEMP 97.7; O2SAT 95
[2024-02-14 04:00] VITALS: BP 106/47; PULSE 107; RESP 18; TEMP 97.9; O2SAT 100
[2024-02-14 07:49] VITALS: BP 95/50; PULSE 103; PULSE 115; RESP 17; RESP 18; TEMP 98.1; O2SAT 96; O2SAT 97
[2024-02-14 08:17] VITALS: BP 95/50; PULSE 115; RESP 17; TEMP 98.1; O2SAT 96
[2024-02-14] MEDS: MIDODRINE 2.5 MG TAB PO ONE (12:15)
[2024-02-14 12:53] VITALS: BP 75/36; PULSE 106; RESP 16; TEMP 98.1; O2SAT 94
== END 2024-02-14 13:05 | disposition hospice, inpatient (51) | DRG 871 ==
LOC: ER 11:49 → ERHOLD 14:33 → MED/SURG3 20:43 → ICU 01-29 10:11 → MED/SURG3 02-05 18:02
PROVIDERS: ADMIT Internal Medicine; ATTEND Internal Medicine
PROC: 02HV33Z Insertion of Infusion Device into Superior Vena Cava, Percutaneous Approach (ICD-10-PCS; principal; 2024-01-27)
PROC: 0W9G3ZZ Drainage of Peritoneal Cavity, Percutaneous Approach (ICD-10-PCS; 2024-01-29)
PROC: 3E0333Z Introduction of Anti-inflammatory into Peripheral Vein, Percutaneous Approach (ICD-10-PCS; 2024-01-30)
PROC: 0HBRXZZ Excision of Toe Nail, External Approach (ICD-10-PCS; 2024-01-31)
PROC: 0HBRXZZ Excision of Toe Nail, External Approach (ICD-10-PCS; 2024-01-31)
PROC: 0T9B70Z Drainage of Bladder with Drainage Device, Via Natural or Artificial Opening (ICD-10-PCS; 2024-01-31)
PROC: 0W9G3ZZ Drainage of Peritoneal Cavity, Percutaneous Approach (ICD-10-PCS; 2024-02-04)
PROC: 0W9G3ZZ Drainage of Peritoneal Cavity, Percutaneous Approach (ICD-10-PCS; 2024-02-10)
DX: A41.51 Sepsis due to Escherichia coli [E. coli] (principal); G93.41 Metabolic encephalopathy; N17.0 Acute kidney failure with tubular necrosis; K76.7 Hepatorenal syndrome; K65.2 Spontaneous bacterial peritonitis; E87.1 Hypo-osmolality and hyponatremia; N39.0 Urinary tract infection, site not specified; Z16.12 Extended spectrum beta lactamase (ESBL) resistance; D68.8 Other specified coagulation defects; K76.6 Portal hypertension; K74.69 Other cirrhosis of liver; R18.8 Other ascites; K72.90 Hepatic failure, unspecified without coma; K76.82 Hepatic encephalopathy; E11.22 Type 2 diabetes mellitus with diabetic chronic kidney disease; Z51.5 Encounter for palliative care; Z66 Do not resuscitate; Z11.52 Encounter for screening for COVID-19; K75.81 Nonalcoholic steatohepatitis (NASH); D63.1 Anemia in chronic kidney disease; I25.10 Atherosclerotic heart disease of native coronary artery without angina pectoris; E83.52 Hypercalcemia; E78.5 Hyperlipidemia, unspecified; N40.0 Benign prostatic hyperplasia without lower urinary tract symptoms; K21.9 Gastro-esophageal reflux disease without esophagitis; E66.9 Obesity, unspecified; I12.9 Hypertensive chronic kidney disease with stage 1 through stage 4 chronic kidney disease, or unspecified chronic kidney disease; N18.31 Chronic kidney disease, stage 3a; I95.9 Hypotension, unspecified; B96.20 Unspecified Escherichia coli [E. coli] as the cause of diseases classified elsewhere; R53.81 Other malaise; L60.0 Ingrowing nail; K52.9 Noninfective gastroenteritis and colitis, unspecified; B37.2 Candidiasis of skin and nail; Z68.30 Body mass index [BMI] 30.0-30.9, adult; M54.9 Dorsalgia, unspecified; Z79.84 Long term (current) use of oral hypoglycemic drugs; Z95.1 Presence of aortocoronary bypass graft; I25.2 Old myocardial infarction; Z88.5 Allergy status to narcotic agent; Z83.3 Family history of diabetes mellitus
CPT/HCPCS: 36415; 36569; 36600; 49083; 71045; 74174; 74470; 76705; 76770; 80048; 80053; 81001; 82040; 82140; 82150; 82533; 82570; 82945; 82948; 83735; 84100; 84157; 84300; 84484; 85025; 85610; 85730; 86850; 86900; 87040; 87070; 87086; 87186; 87205; 88112; 88305; 89051; 94640; 94799; 96372; 99252; 99284; C1729; J0696; J2001; J2185; J2270; J2310; J2405; J3430; J7030; J7050; J7070; J7799; Q9967; U0002

== ENCOUNTER 2024-02-14 13:05 | Inpatient (IN) | payer OTHER ==
[~2024-02-14] VITALS: Ht 180.3 cm; Wt 99.8 kg
[~2024-02-14 13:05] MED LIST changes: +ELIQUIS5 M1 PO; +GLIMEPIRIDE2 MG PO
[2024-02-14 14:08] VITALS: BP 75/36; PULSE 106; RESP 16; TEMP 98.1; O2SAT 94
[2024-02-14] MEDS ORDERED: ACETAMINOPHEN 325 MG TAB PO PRN (15:45)
[2024-02-14] MEDS ORDERED: ATROPINE SULFATE 1% OPTH SOLN 5 ML SL PRN (16:00)
[2024-02-14] MEDS: TRAMADOL HCL 50 MG TAB PO PRN (16:13)
[2024-02-14] MEDS: LORAZEPAM INJ 2 MG/ML VIAL IV PRN (17:31)
[2024-02-14] MEDS: TRAMADOL HCL 50 MG TAB PO SCH (20:00)
[2024-02-14] MEDS ORDERED: TRAMADOL HCL 50 MG TAB PO PRN (20:00)
[2024-02-14 22:59] VITALS: BP 109/55; PULSE 104; RESP 20; TEMP 97.3; O2SAT 97
[2024-02-15] VITALS: BP 109/55; RESP 20; TEMP 97.3; O2SAT 97
[2024-02-15 08:23] VITALS: BP 114/52; PULSE 74; RESP 18; TEMP 97.7; O2SAT 100
[2024-02-15] MEDS: Morphine 2mg Syringe 2 MG/ML SYR IV PRN (10:02)
[2024-02-15] MEDS: ONDANSETRON HCL INJ 2MG/ML 2ML 2 MG/ML VIAL IV PRN (10:08)
[2024-02-15 22:00] VITALS: O2SAT 96
[2024-02-16 02:29] VITALS: BP 89/54; PULSE 115; RESP 20; TEMP 97.3; O2SAT 95
== END 2024-02-17 03:00 | disposition expired | DRG 951 ==
LOC: MED/SURG3 13:05
PROVIDERS: ADMIT Internal Medicine; ATTEND Internal Medicine
DX: Z51.5 Encounter for palliative care (principal); K76.7 Hepatorenal syndrome; E87.1 Hypo-osmolality and hyponatremia; N17.9 Acute kidney failure, unspecified; E44.0 Moderate protein-calorie malnutrition; Z66 Do not resuscitate; K76.82 Hepatic encephalopathy; D69.59 Other secondary thrombocytopenia; E11.9 Type 2 diabetes mellitus without complications; E83.52 Hypercalcemia; I10 Essential (primary) hypertension; K74.60 Unspecified cirrhosis of liver; K29.70 Gastritis, unspecified, without bleeding; D72.829 Elevated white blood cell count, unspecified; F41.9 Anxiety disorder, unspecified; Z96.0 Presence of urogenital implants; Z88.5 Allergy status to narcotic agent; Z88.8 Allergy status to other drugs, medicaments and biological substances; Z68.30 Body mass index [BMI] 30.0-30.9, adult
CPT/HCPCS: 36415; 82948; J2060; J2270; J2405